=== PATIENT | male | born 1935 | race Caucasian/White ===

== ENCOUNTER 2019-09-29 08:52 | Day surgery (SDC) | payer OTHER ==
[~2019-09-29 08:52] MED LIST: FENTANYL CITR 100 MCG/2 ML ONE; LIDOCAINE 2% MPF 5 ML VIAL ONE; propofoL 200 MG/20 ML VIAL IV ONE
[2019-09-29] MEDS ORDERED: Ringers Lactate 1,000 ML IV ONE (09:20)
[2019-09-29] MEDS ORDERED: CEFAZOLIN/SWI 1gm 1 GM/10 ML SYR ONE (09:20)
[2019-09-29] MEDS ORDERED: DIPHENHYDRAMINE 50 MG/ML VIAL ONE (09:48)
[2019-09-29] MEDS ORDERED: GLYCOPYRROLATE 0.2 MG/ML SYR ONE ×2 (09:49→10:09)
[2019-09-29] MEDS ORDERED: ONDANSETRON 4 MG/2 ML VIAL ONE (11:55)
--- NOTE | 2019-09-29 12:27 | OP ---
Date of Procedure: 09/29/2019 Surgeon: Arden Brown MD Crossbar Switch Adjuster: MAXIMILIAN Oglesby. Preoperative Diagnosis: Right hand mass and right leg mass. Postoperative Diagnosis: Right hand mass and right leg mass. Procedures: 1.Wide excision of right hand mass, which was a skin cancer, 6 x 3 cm with layered closure, length o f closure was 6 cm. 2.A shave biopsy of right leg mass, approximately 2.5 cm. Estimated Blood Loss: Minimal. 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 Clear diagnosis could not be made on frozen sect ion, therefore no further surgery was done on that wound at this time. Anesthesia: General. Complications: None. Disposition: Patient tolerated the procedure in stable condition, taken to Recovery in good general condition. Operative Note: Patient was brought to the OR and placed in supine position. General anesthesia beg un. Patient placed in left lateral position and the right dorsum of the hand in between the thumb an d index finger was prepped and draped in the usual sterile fashion. Right posterior leg was prepped and draped in usual sterile fashion and then a 15 blade was used to make a 6 x 3 cm incision on the r ight-hand down through the deep subcutaneous tissue. The mass which was approximately 2.5 cm in diam eter was excised with normal margins on both sides grossly seen and the specimen was appropriately la beled and sent to Pathology. 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 Flaps created and 3-0 chromic used to approximate the subcutaneous tissue and 5-0 nylon used to close skin in interrupted fashion. Sterile dressing applied. In the right posterior leg it appeared to be a verruca lesion, therefore I opted to do a shave biopsy before doing a definitive wide excisi on, so Marcaine 0.5% was infiltrated locally. Then, a shave biopsy partial thickness in nature was u sed to excise this 2.5 cm raised cauliflower-appearing lesion and then wound irrigated. Bleeding con trolled with cautery. Frozen section revealed it to be hyperkeratotic lesion. Carcinoma could not b e ruled out; however, there was no obvious evidence that it was carcinoma. Therefore, patient had st erile dressing applied. Patient was awakened and taken to Recovery in good general condition. Discharge Note: Patient will be discharged home when stable. Disposition: Home. Condition: Stable. Discharge Instructions: Resume home medications and diet. Activity as tolerated. No heavy lifting. Remove blood thinners tomorrow, the patient is on Eliquis, Neosporin to right leg wound daily. Fol low up in my office in 10 days, call for appointment. Tylenol No. 3 one tablet p.o. q.4 p.r.n. pain. /MODL Voice ID: [id number] Report ID: [id number]
[2019-09-29 13:06] VITALS: TEMP 96.5
[2019-09-29 13:07] VITALS: BP 169/77; O2SAT 99
== END 2019-09-29 12:55 | disposition home or self-care (01) ==
LOC: OR 08:52
PROVIDERS: ATTEND Surgery
PROC: 0JBN3ZX Excision of Right Lower Leg Subcutaneous Tissue and Fascia, Percutaneous Approach, Diagnostic (ICD-10-PCS; principal; 2019-09-29 09:00)
PROC: 0JBJ0ZX Excision of Right Hand Subcutaneous Tissue and Fascia, Open Approach, Diagnostic (ICD-10-PCS; 2019-09-29 09:00)
DX: C44.622 Squamous cell carcinoma of skin of right upper limb, including shoulder (principal); C44.722 Squamous cell carcinoma of skin of right lower limb, including hip; L85.8 Other specified epidermal thickening; I48.91 Unspecified atrial fibrillation; I10 Essential (primary) hypertension; E78.5 Hyperlipidemia, unspecified; Z79.01 Long term (current) use of anticoagulants; Z79.899 Other long term (current) drug therapy
CPT/HCPCS: 88305; 88331; 88332; J0690; J1200; J2405; J2704; J3010; J7120

== ENCOUNTER 2020-03-23 19:27 | Inpatient (IN) | payer OTHER ==
[2020-03-23 20:05] VITALS: BMI 38.5
[2020-03-23 21:49] LABS: Absolute Lymphocytes (CBC) 0.6 K/uL (0.7-4.9); Basophils % 0.7 % (0-1.3); Hematocrit 41.9 % (39.6-49.0); Lymphocytes % 2.9 % (15.3-44.8); MPV 8.9 fL (7.6-11.3); RBC Red Blood Cell Count 4.51 M/uL (4.33-5.43)
[2020-03-23 21:54] LABS: Protime INR 1.33
[2020-03-23 22:06] LABS: Blood Morphology Comment NOT SEEN (NOT SEEN); Platelet Estimate ADEQ
[2020-03-23 22:33] LABS: Albumin 3.6 g/dL (3.4-5.0); Bilirubin Direct 0.6 mg/dL (0-0.2); Bilirubin Total 1.7 mg/dL (0.2-1.0); Phosphorus 2.2 mg/dL (2.5-4.9); Potassium 3.8 mmol/L (3.5-5.1); Protein, Total 8.8 g/dL (6.4-8.2); Thyroid Stimulating Hormone 0.547 uIU/mL (0.360-3.740)
[2020-03-23] MEDS ORDERED: ALBUTEROL 2.5 MG/3 ML NEB SOL NEB PRN (22:35)
[2020-03-23] MEDS ORDERED: LOPERAMIDE HCL 2 MG CAPSULE PO PRN (22:37)
[2020-03-23] MEDS ORDERED: DIPHENHYDRAMINE 25 MG TAB/CAP PO PRN (22:37)
[2020-03-23] MEDS ORDERED: ONDANSETRON 4 MG/2 ML VIAL IV PRN (22:44)
[2020-03-23] MEDS ORDERED: POLYETHYL GLY 3350 17 GM/DOSE PO PRN (22:44)
[2020-03-23] MEDS: CEFTRIAXONE/SWI 1gm 1 GM/10 ML SYR IVP SCH (22:53)
[2020-03-23] MEDS: ACETAMINOPHEN 325 MG TABLET PO PRN (23:24)
[2020-03-23 23:33] LABS: Urine Appearance CLEAR; Urine Bilirubin NEGATIVE (NEG); Urine Blood TRACE (NEG); Urine Color YELLOW; Urine Glucose NEGATIVE (NEG); Urine Protein TRACE (NEG)
[2020-03-23 23:44] LABS: Urine Microscopic Reflex ORDER UMIC
[2020-03-23 23:58] LABS: Urine Bacteria <20 /HPF (NONE SEEN); Urine Culture Reflex Order NOT NEEDED; Urine RBC <5 /HPF (NONE SEEN)
[2020-03-24] MEDS ORDERED: LEVALBUTEROL 1.25 MG/3 ML NEB NEB SCH (02:00)
[2020-03-24] MEDS: ALBUTEROL 2.5 MG/3 ML NEB SOL NEB SCH ×4 (02:05→19:40)
[2020-03-24] MEDS: IPRATROPIUM BROM 0.5MG/2.5ML NEB SCH ×4 (02:05→19:40)
[2020-03-24 04:06] LABS: Potassium 3.5 mmol/L (3.5-5.1)
--- NOTE | 2020-03-24 07:34 | RAD REPORT ---
EXAM DESCRIPTION: Praveen Fernando And Marco A (2 Views)03/24/2020 12:05 am CLINICAL HISTORY: Shortness of breath COMPARISON: March 19, 2020 FINDINGS: The lungs appear clear of acute infiltrate. The heart is moderately enlarged IMPRESSION: No acute abnormalities displayed
[2020-03-24] MEDS ORDERED: PNEUMOCOCCAL VACCINE 0.5 ML IMVAC ONE (08:00)
[2020-03-24] MEDS: CEFTRIAXONE/SWI 1gm 1 GM/10 ML SYR IVP SCH ×2 (08:27→21:40)
[2020-03-24] MEDS: APIXABAN 5 MG TABLET PO SCH ×2 (08:28→21:40)
[2020-03-24] MEDS: PARoxetine HCL 10 MG TAB PO SCH (08:28)
[2020-03-24] MEDS: HYDRALAZINE HCL 25 MG TABLET PO SCH ×3 (08:28→21:40)
[2020-03-24] MEDS: MIRTAZAPINE 15 MG TAB PO SCH (08:28)
[2020-03-24] MEDS: GUANFACINE HCL 1 MG TAB PO SCH (08:29)
[2020-03-24] MEDS ORDERED: AZITHROMYCIN IV 500 MG in NA CHLORIDE 0.9% 250 ML IVPB SCH (09:00)
[2020-03-24] MEDS ORDERED: ENOXAPARIN 40 MG/0.4 ML SQ SCH ×2 (09:00)
[2020-03-24] MEDS ORDERED: CEFTRIAXONE 1 GM/NS 50 ML 1 GM/50 ML BAG IV SCH (09:00)
[2020-03-24] MEDS ORDERED: POTASSIUM CL SA 10 MEQ TAB PO ONE (09:00)
[2020-03-24] MEDS ORDERED: POTASSIUM CL SA 10 MEQ TAB PO SCH (09:00)
[2020-03-24] MEDS ORDERED: FUROSEMIDE 40 MG/4 ML VIAL IV SCH (09:00)
[2020-03-24] MEDS: VALSARTAN 160 MG TAB PO SCH (09:25)
--- NOTE | 2020-03-24 11:02 | RAD REPORT ---
EXAM DESCRIPTION: CT - Chest Angio - 03/24/2020 6:24 am CLINICAL HISTORY: Hypoxia, dyspnea TECHNIQUE: Contiguous axial images obtained through the chest during angiographic phase following th e uneventful administration of IV contrast. Sagittal and coronal reformatted images were provided. CT P reformatted images were provided. This exam was performed according to our departmental dose-optimization program, which includes autom ated exposure control, adjustment of the mA and/or kV according to patient size and/or use of iterati ve reconstruction technique. COMPARISON: No prior exams provided for comparison. FINDINGS: Diagnostic quality: There is good opacification of the pulmonary arterial tree. Motion art ifact degrades image quality and limits evaluation of segmental and subsegmental vessels. Lungs: No focal consolidation. Airways are patent. Pleura: No effusion. No pneumothorax. Heart and pericardium: The heart is enlarged. Coronary artery calcification. No pericardial effusion. Mediastinum and gladys: No pathologically enlarged lymph nodes. Small to moderate hiatal hernia. Lower neck and chest wall: Right posterior chest wall intramuscular lipoma. Vessels: No pulmonary arterial filling defects. Mild to moderate atherosclerotic disease. The ascendi ng aorta measures 3.7 cm in maximum diameter. Upper abdomen: The liver is enlarged. Bones: Multilevel spondylosis. No acute fracture. IMPRESSION: 1. Motion artifact degrades image quality and limits evaluation of segmental and subse gmental vessels. No central pulmonary embolic disease. 2. Other findings as above. Electronically signed by: Isis Patel MD 03/24/2020 12:21 AM CDT Due to temporary technical issues with the PACS/Fluency reporting system, reports are being signed by the in house radiologist without review as a courtesy to ensure prompt reporting. The interpreting r adiologist is fully responsible for the content of the report.
--- NOTE | 2020-03-24 17:13 | P.PN ---
Subjective Date of Service: 03/24/20 Chief Complaint: HE FEELS LOT BETTER. Subjective: Improving HE IS DYSPNEIC BUT MILD. HE HAS NO CHEST OR ABDOMEN PAIN. Review of Systems 10-point ROS is otherwise unremarkable General: Weakness, Malaise Respiratory: Shortness of Breath Physical Examination - Vital Signs Temperature: 97.8 F Blood Pressure: 116/54 Pulse: 46 Respirations: 19 Pulse Ox (%): 96 - Physical Exam General: Mild distress, Obese HEENT: Atraumatic, PERRLA, EOMI Neck: Supple, JVD not distended Respiratory: Clear to auscultation bilaterally, Normal air movement Cardiovascular: Regular rate/rhythm, Normal S1 S2 Gastrointestinal: Normal bowel sounds, No tenderness Musculoskeletal: No tenderness Integumentary: No rashes Neurological: Normal speech, Normal tone, Normal affect Lymphatics: No axilla or inguinal lymphadenopathy - Studies Laboratory Data (last 24 hrs) 03/24/20 07:00: Troponin I < 0.02 03/24/20 03:31: Sodium 138, Potassium 3.5, BUN 24 H, Creatinine 1.09, Glucose 156 H, Magnesium 2.0 03/23/20 21:40: Sodium 138, Potassium 3.8, BUN 22 H, Creatinine 1.10, Glucose 152 H, Phosphorus 2.2 L, Magnesium 2.0, Total Bilirubin 1.7 H, AST 26, ALT 35, Alkaline Phosphatase 95 03/23/20 21:40: PT 15.6 H, INR 1.33, APTT 26.0 03/23/20 21:40: WBC 22.0 H*, Hgb 14.1, Hct 41.9, Plt Count 170 03/23/20 21:30: Plt Count Cancelled Microbiology Data (last 24 hrs): 03/24/20 00:27 Blood - Blood Anaerobic Blood Culture - Final Medications List Reviewed: Yes Assessment And Plan - Current Problems (Diagnosis) (1) Dyspnea Current Visit: Yes Status: Acute Plan: NO SIGNS OF PE, PNEUMONIA OR CHF. CT ANGIO NEG. ECHO PENDING. RULE OUT ENDOCARDITIS. TWO BC PENDING. Qualifiers: Dyspnea type: dyspnea on exertion Qualified Code(s): R06.00 - Dyspnea, unspecified (2) Leukocytosis Current Visit: Yes Status: Acute Plan: SOURCE OF INFECTION NOT CLEAR YET. WILL ORDER CT ABDOMEN WITH CONTRAST. IV ABX ARE HELPING. FEVER IS DOWN. COVID NEG. UA NEG. BC2 PENDING. Qualifiers: Leukocytosis type: bandemia Qualified Code(s): D72.825 - Bandemia (3) HTN (hypertension) Current Visit: Yes Status: Chronic
[2020-03-25] MEDS: IPRATROPIUM BROM 0.5MG/2.5ML NEB SCH ×2 (01:15→07:37)
[2020-03-25] MEDS: ALBUTEROL 2.5 MG/3 ML NEB SOL NEB SCH ×2 (01:15→07:37)
[2020-03-25] MEDS: ACETAMINOPHEN 325 MG TABLET PO PRN (02:26)
[2020-03-25 06:16] LABS: Basophils % 0.5 % (0-1.3); Hematocrit 36.2 % (39.6-49.0); Lymphocytes % 11.8 % (15.3-44.8); MPV 9.5 fL (7.6-11.3); RBC Red Blood Cell Count 3.86 M/uL (4.33-5.43)
[2020-03-25 06:24] LABS: Magnesium 2.3 mg/dL (1.8-2.4); Potassium 3.6 mmol/L (3.5-5.1)
--- NOTE | 2020-03-25 08:19 | CON ---
Date of Consultation: 03/24/2020 Reason For Consultation: Dyspnea on exertion. History Of Present Illness: Mr. Rubio is an 84-year-old white male, he is the patient of Dr. Mariscal, has had paroxysmal atrial fibrillation and hypertension, was admitted with the shortness of breath. Denied any chest pain. Denied any nausea, vomiting, or diaphoresis. He denied any PND or orthopnea . Has had some pedal edema. He denied any palpitation or syncope. He denied any fever or chills. Past Medical History: As stated above. Allergies: NONE. Review of Systems: Negative. Social History: Negative. Family History: Noncontributory. Medications: At home include Eliquis, Lasix, hydralazine, Paxil and Remeron. Physical Examination: General: He weighed 275 pounds. HEENT: Negative. Neck: Supple, with no bruit, lymphadenopathy, JVD, or thyromegaly. Chest: Revealed expiratory wheezing and crackles at the bases. Cardiac: Revealed regular rhythm and rate with an S4 gallops. No murmurs or rubs. Abdomen: Obese, but benign. Extremities: Revealed no clubbing, cyanosis, or edema. Diagnostic Data: His troponin was negative. EKG showed nonspecific changes with normal sinus rhythm . His D-dimer was 560. White count was 22,000. Glucose was 156. BNP was 1776. Impression And Plan: Hypoxia and dyspnea on exertion, most likely secondary to acute bronchitis. Hi s white count is 22,000. Pulmonary embolus is being ruled out with a CTA because of an elevated D-di jacoby. His blood pressure is fairly well controlled. He is on inhalers as well as antibiotics in madel[place] tion to his home medication. We will obtain an echocardiogram to rule out congestive heart failure. We will continue to follow him. I agree with his present regimen. KIERSTEN/YUNI Voice ID: [id number] Report ID: [id number]
--- NOTE | 2020-03-25 08:30 | ECHO ---
HEIGHT: 5 ft 11 in WEIGHT: 275 lb 8 oz DATE OF STUDY: 03/24/[address]: Logan Richard MD 2-DIMENSIONAL: YES M.MODE: YES DOPPLER: YES COLOR FLOW: YES TDS: NO PORTABLE: NO DEFINITY: NO BUBBLE STUDY: NO DIAGNOSIS: SHORTNESS OF BREATH CARDIAC HISTORY: CATHERIZATION: NO SURGERY: NO PROSTHETIC VALVE: NO PACEMAKER: NO MEASUREMENTS (cm) DIASTOLIC (NORMALS) SYSTOLIC (NORMALS) IVSd 1.3 (0.6-1.2) LA Diam 5.3 (1.9-4.0) LVEF 68% LVIDd 5.7 (3.5-5.7) LVIDs 3.5 (2.0-3.5) %FS 39% LVPWd 1.4 (0.6-1.2) Ao Diam 3.3 (2.0-3.7) 2 DIMENSIONAL ASSESSMENT: RIGHT ATRIUM: NORMAL LEFT ATRIUM: DILATED RIGHT VENTRICLE: NORMAL LEFT VENTRICLE: LEFT VENTRICULAR HYPERTROPHY TRICUSPID VALVE: NORMAL MITRAL VALVE: NORMAL PULMONIC VALVE: NORMAL AORTIC VALVE: NORMAL PERICARDIAL EFFUSION: NONE AORTIC ROOT: NORMAL LEFT VENTRICULAR WALL MOTION: NORMAL DOPPLER/COLOR FLOW: MILD TRICUSPID REGURGITATION. NORMAL RIGHT VENTRICULAR SYSTOLIC PRESSURE. COMMENTS: MILD TRICUSPID REGURGITATION. NORMAL RIGHT VENTRICULAR SYSTOLIC PRESSURE. NO WALL MOTION ABNORMALITY. NORMAL LEFT VENTRICULAR FUNCTION. LEFT VENTRICULAR EJECTION FRACTION 68%. LEFT VENTRICULAR HYPERTROPHY. LEFT ATRIAL ENLARGEMENT. TECHNOLOGIST: Ana VIERA
[2020-03-25] MEDS: GUANFACINE HCL 1 MG TAB PO SCH (08:53)
[2020-03-25] MEDS: PARoxetine HCL 10 MG TAB PO SCH (08:54)
[2020-03-25] MEDS: MIRTAZAPINE 15 MG TAB PO SCH (08:54)
[2020-03-25] MEDS: HYDRALAZINE HCL 25 MG TABLET PO SCH (08:54)
[2020-03-25] MEDS: VALSARTAN 160 MG TAB PO SCH (08:54)
[2020-03-25] MEDS: APIXABAN 5 MG TABLET PO SCH (08:54)
[2020-03-25 08:55] VITALS: O2SAT 93
[2020-03-25] MEDS: CEFTRIAXONE/SWI 1gm 1 GM/10 ML SYR IVP SCH (08:55)
[2020-03-25] MEDS ORDERED: POTASSIUM 25 MEQ EFFERV TAB PO ONE (09:00)
--- NOTE | 2020-03-25 09:15 | RAD REPORT ---
EXAM DESCRIPTION: CT - Abdomen Pelvis W Contrast - 03/25/2020 8:21 am CLINICAL HISTORY: Abdominal pain/fever COMPARISON: none. TECHNIQUE: Computed axial tomography of the abdomen pelvis was obtained. 100 cc Isovue-300 was admin istered intravenously. Oral contrast was not requested which limits evaluation of bowel. All CT scans are performed using dose optimization technique as appropriate and may include automated exposure control or mA/KV adjustment according to patient size. FINDINGS: Small hiatal hernia. Wall of distal esophagus appears thickened. The liver, spleen, pancreas, and adrenals appear unremarkable. Two cysts extend off of the right kidney. The largest measures 8.9 centimeters. Several small nonobst ructing right renal calculi. 3.1 centimeter left renal cyst. 8 millimeter low to intermediate density mass extends off of the left kidney. There is no evidence of diverticulitis. Normal appendix. IMPRESSION: Nonobstructing right renal calculi 8 millimeter left renal mass probably benign complex cyst. A followup ultrasound 6 months recommended for re-evaluation. Apparent thickening of the wall of distal esophagus. This can be secondary to incomplete distention, inflammation or mass
--- NOTE | 2020-03-25 12:53 | P.DS ---
Admission Date: 03/23/20 Discharge Date: 03/25/20 Disposition: ROUTINE DISCHARGE Discharge Condition: FAIR Reason for Admission: HE FEELS LOT BETTER. - Problems (1) Dyspnea Current Visit: Yes Status: Acute Qualifiers: Dyspnea type: dyspnea on exertion Qualified Code(s): R06.00 - Dyspnea, unspecified (2) Leukocytosis Current Visit: Yes Status: Acute Qualifiers: Leukocytosis type: bandemia Qualified Code(s): D72.825 - Bandemia (3) HTN (hypertension) Current Visit: Yes Status: Chronic Hospital Course: MR. HSIEH COMES WITH DYSPNEA. HE HAS NO CHEST PAIN. HE HAD NO PE, CHF OR PNEUMONIA ON CXR. HE HAD WBC COUNT OF 22K ON ADMISSION BUT NO SOURCE OF INFECTION. HE HAD NEG UA, NEG CT ABDOMEN AND PELVIS, NEG BLOOD CULTURES. HE IS FEELING GREAT. HE MAY END UP HAVING MORE SYMPTOMS IF INFECTION IS MORE AGGRESSIVE. CURRENTLY HE IS GOING HOME HE FEELS GREAT, ATE THE WHOLE PLATE AND WANTS TO GO HOME. Vital Signs/Physical Exam: Temp Pulse Resp BP Pulse Ox 97.6 F 50 19 169/75 H 95 03/25/20 08:00 03/25/20 08:54 03/25/20 08:00 03/25/20 08:54 03/25/20 08:00 General: Alert, In no apparent distress, Obese HEENT: Atraumatic, PERRLA, EOMI Neck: Supple, JVD not distended Respiratory: Clear to auscultation bilaterally, Normal air movement Cardiovascular: Regular rate/rhythm, Normal S1 S2 Gastrointestinal: Normal bowel sounds, No tenderness Musculoskeletal: No tenderness Integumentary: No rashes Neurological: Normal speech, Normal tone, Normal affect Lymphatics: No axilla or inguinal lymphadenopathy Laboratory Data at Discharge: WBC 8.9 K/uL (4.3-10.9) D 03/25/20 05:51 Hgb 12.3 g/dL (13.6-17.9) L 03/25/20 05:51 Hct 36.2 % (39.6-49.0) L 03/25/20 05:51 Plt Count 164 K/uL (152-406) 03/25/20 05:51 PT 15.6 SECONDS (9.5-12.5) H 03/23/20 21:40 INR 1.33 03/23/20 21:40 APTT 26.0 SECONDS (24.3-36.9) 03/23/20 21:40 Sodium 139 mmol/L (136-145) 03/25/20 05:51 Potassium 3.6 mmol/L (3.5-5.1) 03/25/20 05:51 BUN 20 mg/dL (7-18) H 03/25/20 05:51 Creatinine 0.98 mg/dL (0.55-1.3) 03/25/20 05:51 Glucose 133 mg/dL (74-106) H 03/25/20 05:51 Phosphorus 2.2 mg/dL (2.5-4.9) L 03/23/20 21:40 Magnesium 2.3 mg/dL (1.8-2.4) 03/25/20 05:51 Total Bilirubin 1.7 mg/dL (0.2-1.0) H 03/23/20 21:40 AST 26 U/L (15-37) 03/23/20 21:40 ALT 35 U/L (12-78) 03/23/20 21:40 Alkaline Phosphatase 95 U/L (45-117) 03/23/20 21:40 Troponin I < 0.02 ng/mL (0.0-0.045) 03/24/20 07:00 Home Medications: Apixaban [Eliquis] 5 mg PO BID 03/23/20 Furosemide 10 mg PO DAILY 03/23/20 Guanfacine HCl 2 mg PO DAILY 03/23/20 Hydralazine [Apresoline*] 25 mg PO DAILY 03/23/20 Mirtazapine [Remeron*] 15 mg PO DAILY 03/23/20 Olmesartan Medoxomil 40 mg PO DAILY 03/23/20 PARoxetine HCl [Paxil] 30 mg PO DAILY 03/23/20 Cefuroxime [Ceftin] 250 mg PO BID #20 tab 03/25/20 New Medications: Cefuroxime [Ceftin] 250 mg PO BID #20 tab Patient Discharge Instructions: MR HSIEH YOUR CT SCAN OF CHEST AND ABDOMEN SHOWED NO CLOTS, NO SIGNS OF INFETION OR HEART FAILURE. I WILL SEE YOU SOON IN ABOUT 10 DAYS.
--- NOTE | 2020-03-25 13:10 | PN ---
Date of Progress Note: 03/25/2020 History Of Present Illness: Mr. Rubio had came in with what appeared to be an acute episode of bron chitis, shortness of breath, hypoxia. He does have a history of paroxysmal atrial fibrillation, has been in and out of AFib since he has been here, but his rate is in the 50s and he is not having any i ssues with that. His blood pressure was 169/75. His white count is 8.9, much improved from 22,000 w hen he came in. He is on antibiotics still. His O2 saturation is 93%. Echocardiogram which was don e yesterday showed left ventricular hypertrophy with an ejection fraction of 68%. I would continue h is present regimen including his anticoagulation. I am comfortable with him going home whenever it i s okay with Dr. Mariscal and I will see him in the office in the next 2 to 4 weeks. KIERSTEN/YUNI Voice ID: [id number] Report ID: [id number]
[2020-03-25 15:49] VITALS: BP 126/60; TEMP 97.9
== END 2020-03-25 15:16 | disposition home or self-care (01) | DRG 203 ==
LOC: 2ND 19:27
PROVIDERS: ADMIT Internal Medicine; ATTEND Internal Medicine
DX: J20.9 Acute bronchitis, unspecified (principal); E78.5 Hyperlipidemia, unspecified; D72.825 Bandemia; I10 Essential (primary) hypertension; E11.9 Type 2 diabetes mellitus without complications; E66.9 Obesity, unspecified; Z68.38 Body mass index [BMI] 38.0-38.9, adult; Z88.1 Allergy status to other antibiotic agents; Z88.0 Allergy status to penicillin; Z88.8 Allergy status to other drugs, medicaments and biological substances; Z79.01 Long term (current) use of anticoagulants; Z79.899 Other long term (current) drug therapy; Z20.828 Contact with and (suspected) exposure to other viral communicable diseases
CPT/HCPCS: 36415; 71046; 71275; 74177; 80048; 80076; 81003; 81015; 82306; 82607; 83605; 83735; 83880; 84100; 84145; 84443; 84484; 85025; 85379; 85610; 85730; 87040; 93005; 93306; 94640; 97112; 97116; 97161; J0456; J0696; J1940; J7050; Q9967; U0003